=== PATIENT | female | born 1980 | race Caucasian/White ===

== ENCOUNTER → 2017-09-18 08:31 | Outpatient (CLI) | payer OTHER, SELFPAY ==
--- NOTE | 2017-09-18 08:44 | EKG12_ITS ---
Test Reason : PRE OP Blood Pressure : / mmHG Vent. Rate : 074 BPM Atrial Rate : 074 BPM P-R Int : 148 ms QRS Dur : 086 ms QT Int : 394 ms P-R-T Axes : 039 041 041 degrees QTc Int : 437 ms Normal sinus rhythm Normal ECG Confirmed by ANTONELLA PECK ([id number]), editorial specialist XENIA YANG ([id number] on 09/21/2017 2:09:50 PM Referred By: Bolivar Tavarez Confirmed By:ANTONELLA PECK
[2017-09-18 10:05] LABS: Anion Gap 8 (5-15); BUN 10 mg/dL (7-18); BUN/Creat Ratio 14.9 RATIO (10-20); Calcium,Total 8.4 mg/dL (8.5-10.1); Chloride 104 mmol/L (98-107); Creatinine, Serum 0.67 mg/dL (0.55-1.02); EST Glomerular Filtration Rate 105 mL/min (>60); Est Glom Filt Rate - Afr Amer 127 mL/min (>60); Glucose 110 mg/dL (74-106); Potassium 3.9 mmol/L (3.5-5.1); Sodium Level 140 mmol/L (136-145)
== END ==
PROVIDERS: Family Provider Internal Medicine; PCP Internal Medicine; Visit Provider Otolaryngology
DX: J32.4 Chronic pansinusitis (principal)
CPT/HCPCS: 36415; 80048; 93005

== ENCOUNTER → 2017-09-24 15:54 | Outpatient (CLI) | payer OTHER, SELFPAY ==
--- NOTE | 2017-09-24 09:30 | ETH_PTH ---
PATIENT: PAUL CALDERON LOC: [facility] U#:[id number] AGE/SX: 45/F ROOM: RE09/24/[address]: Dr. Gabino Tavarez MD : [id number] BED: DIS: SPEC #: [id number] RECD: 09/24/17 15:33 STATUS: ILAN BERLIN #: [id number] YULIYA: 09/24/17 09:[address]: Gabino Tavarez DEPT: SURGICAL PATHOLOGY RECD BY: Emilia Stephens ENTERED: 09/25/17 09:02 SP TYPE: ETH TISS OTHR DR: Dr. Taisha Sidhu MD [facility] Tissues: A - Ethmoid sinus, NOS B - Ethmoid sinus, NOS Procedures: Decalcification bone/plaque Surgery Specimen Level III HEADER OPERATION: Functional endoscopic sinus surgery PRE-OP DIAGNOSIS: Chronic pansinusitis TISSUE SUBMITTED: A. Left sinus contents, B. Right sinus contents MICROSCOPIC DIAGNOSIS A. Left sinus contents, excision: Chronic sinusitis. Fragments of bone with no significant pathologic change. B. Right sinus contents, excision: Chronic sinusitis. Fragments of bone with no significant pathologic change. AM:alvarez 09/30/17 MICROSCOPIC DESCRIPTION Slides are reviewed. GROSS DESCRIPTION A - Received in fixative is one container labeled with the patient's name and designated left sinus contents. The specimen consists of multiple pieces of pink-grimes soft tissue including turbinate and bone that in aggregate measure 3 x 2.5 x 0.3 cm. The entire specimen is submitted in one cassette after decalcification. B - Received in fixative is one container labeled with the patient's name and designated right sinus contents. The specimen consists of multiple pieces of pink-grimes soft tissue including turbinate and bone that in aggregate measure 3 x 2.5 x 0.3 cm. The entire specimen is submitted in one cassette after decalcification. / SJ:alvarez 09/25/17 TC:3 CPT: 46562 x2, 50027 x2
== END ==
PROVIDERS: Family Provider Internal Medicine; PCP Internal Medicine; Visit Provider Otolaryngology
DX: J32.4 Chronic pansinusitis (principal)
CPT/HCPCS: 88304; 88305; 88311

== ENCOUNTER → 2018-06-01 08:44 | Outpatient (CLI) | payer OTHER, SELFPAY ==
--- NOTE | 2018-06-01 15:58 | PFTCOMP ---
COMPLETE PULMONARY FUNCTION TEST INTERPRETATION Brief HPI: Patient is a 38 year old female, currently under the care of myself, who presents to [facility] for complete pulmonary function tests secondary to diagnosis of asthma. Respiratory therapist reports good effort and reproducible results. Interpretation: Forced expiration spirometry shows no large airways obstructive ventilatory defect with an FEV1 of 110% predicted. There is no significant bronchodilator response by strict ATS criteria. Spirograms are of good quality and plateau normally. The respiratory flow volume loop shows a normal pattern. Lung volumes by body plethysmography show a normal total lung capacity at 4.39 L, 98% predicted. All other lung volumes are within normal limits. Diffusion capacity by carbon monoxide is normal at 97% predicted. The airway resistance is normal. No previous pulmonary function tests were available for review. Impression: These pulmonary function tests are within normal limits
--- OUTSIDE RECORDS SUMMARY | 2018-07-13 21:33 | XMS RPT_ITS ---
:1980 Author Organization OHIP Support Name Relationship Address Phone IRA CLEMONS Unavailable [address] + [place] [address] CORNER CREATIONS Unavailable [address] + [place] [address] BRII CALDERON Unavailable [address] + [place] [address] KACI IRA Unavailable [address] + [place] [address] [employer]NER [employer] Unavailable [address] + [place] [address] BRII CALDERON Unavailable [address] + [place] [address] NHAN CALDERON Unavailable Unavailable + KACI IRA Unavailable [address] + [place] [address] [employer]NER [employer] Unavailable [address] + [place] [address] BRII CALDERON Unavailable [address] + [place] [address] NHAN CALDERON Unavailable Unavailable + KACI IRA Unavailable [address] + [place] [address] [employer]NER [employer] Unavailable [address] + [place] [address] BRII CALDERON Unavailable [address] + [place] [address] DANIELA CLEMONSY Unavailable [address] + [place] [address] [employer] Unavailable [address] + [place] [address] BRII CALDERON Unavailable [address] + [place] [id number] RIA CLEMONS Unavailable [address] + [place] [id number] [employer]NER [employer] Unavailable [address] + [place] [id number] BRII CALDERON Unavailable [address] + [place] [id number] Care Team Providers Name Role Phone Bud Tavarez Attending Unavailable J CarlosannBud Referring Unavailable ROYAL, LOU Primary Care Unavailable Bud Tavarez Attending Unavailable ROYAL, LOU Primary Care Unavailable Bud Tavarez Referring Unavailable Vick Peck Attending Unavailable Bud Tavarez Referring Unavailable Dameon, William Attending Unavailable Dameon, William Referring Unavailable Dameon, William Attending Unavailable ROYAL, LOU Referring Unavailable Dameon, William Attending Unavailable Dameon, William Referring Unavailable ROYAL, LOU Primary Care Unavailable [place], Lou S Primary Care Unavailable Ivanauskas Saulius Admitting Unavailable Ivanauskas Saulius Attending Unavailable [place], Lou S Attending Unavailable [place], Lou S Primary Care Unavailable [place], Lou S Admitting Unavailable [place], Lou S Attending Unavailable [place], Lou S Primary Care Unavailable [place], Lou S Admitting Unavailable [place], Lou S Admitting Unavailable [place], Lou S Attending Unavailable [place], Lou S Primary Care Unavailable [place], Lou S Attending Unavailable [place], Lou S Primary Care Unavailable PROBLEMS PROBLEMS DATE TYPE CONDITION / CODE ATTENDING STATUS SOURCE 06/18/2018 Unknown J45.909 - William Xiao Active [place] Unspecified asthma, Community uncomplicated / Hospital J45.909(ICD-10) Repository 10/17/2017 Unknown Z01.810 - Encounter Vick Peck Active [place] for preprocedural [facility] cardiovascular [facility] examination / Repository Z01.810(ICD-10) PROCEDURES PROCEDURES No Procedure Records FoundRESULTS RESULTS PULMONARY FUNCTION Observed: 06/02/2018 Status: F Source: [place] REPORT COMP 5:47 AM [facility] REPOS[facility]ORY [facility] Pulmonary Services/Neurology [address] [place] [address] MR#: [id number] Acct: [id number] Name: NHAN CALDERON Rep #: [id number] : 1980 38 From: William Xiao MD Referring Dr: William Xiao MD Status: REG CLI Ordering Dr: Date: Location: [facility] Sex: F C COMPLETE PULMONARY FUNCTION TEST INTERPRETATION Brief HPI: Patient is a 38 year old female, currently under the care of myself, who presents to [facility] for complete pulmonary function tests secondary to diagnosis of asthma. Respiratory therapist reports good effort and reproducible results. Interpretation: Forced expiration spirometry shows no large airways obstructive ventilatory defect with an FEV1 of 110% predicted. There is no significant bronchodilator response by strict ATS criteria. Spirograms are of good quality and plateau normally. The respiratory flow volume loop shows a normal pattern. Lung volumes by body plethysmography show a normal total lung capacity at 4.39 L, 98% predicted. All other lung volumes are within normal limits. Diffusion capacity by carbon monoxide is normal at 97% predicted. The airway resistance is normal. No previous pulmonary function tests were available for review. Impression: These pulmonary function tests are within normal limits 06/02/18 0547 <Electronically signed by William Xiao MD> Date William Xiao MD CC: William Xiao MD; [facility] Date Dictated: 06/01/18 1558 Date Transcribed: 06/01/181557 Fluxer: MARBELLA Signed BMP Collected: 05/31/2018 Status: F Source: [facility] 10:33 AM [facility] REPOSITORY TYPE CODE TESTS RESULT OUT OF RANGE REFERENCE UNITS LAB 25973407(L 10-20 mEq/L OINC) Low AGAP 7 LAB 08370601(L 70-99 mg/dL OINC) Glucose Normal Lvl 88 LAB 40138736(L 6-23 mg/dL OINC) BUN Normal 11 LAB 3357476(LO 0.5-1.1 mg/dL INC) Normal Creatinine 0.6 LAB 70596593(L 5.4-30.0 ratio OINC) Normal BUN/Creat Ratio 18.3 LAB 30885020(L 8.6-10.3 mg/dL OINC) Calcium Normal Lvl 8.9 LAB 35043541(L 136-145 mEq/L OINC) Sodium Normal Lvl 138 LAB 32651393(L 3.5-5.3 mEq/L OINC) Normal Potassium Lvl 3.9 LAB 16853466(L 98-107 mEq/L OINC) Chloride Normal 105 LAB 69054982(L 21.0-32.0 mEq/L OINC) CO2 Normal 30.0 Performed By: #### [id number] #### ELLIE [employer] [address] [place] [address] EGFR Collected: 05/31/2018 Status: F Source: [facility] 10:33 AM [facility] REPOSITORY Order Comment: Order added by Discern Expert. TYPE CODE TESTS RESULT OUT OF RANGE REFERENCE UNITS LAB 80399588(LO mL/min/1.73 INC) m2 Normal eGFR >60 LAB 05750531(LO mL/min/1.73 INC) m2 Normal eGFR AA >60 Performed By: #### [id number] #### ELLIE [employer] [address] [place] [address] LIPID PROFILE Collected: 05/31/2018 Status: F Source: [facility] 10:33 AM [facility] REPOSITORY TYPE CODE TESTS RESULT OUT OF RANGE REFERENCE UNITS LAB 72560966(LO 0-199 mg/dL INC) Normal Chol 185 Result Comment: TOTAL CHOLEESTEROL: <200 NORMAL 200 - 239 BORDERLINE HIGH >240 HIGH LAB 55760215(LOINC) 40-60 mg/dL High HDL 72 LAB 93505958(LOINC) 0-130 mg/dL Normal LDL 102 Result Comment: <100 OPTIMAL 100-129 NEAR / ABOVE OPTIMAL 130-159 BORDERLINE HIGH 160-189 HIGH >190 VERY HIGH CALC LDL NOT VALID WHEN TRIGLYCERIDE IS >400 MG/DL LAB 05288182(LOINC) 0-149 mg/dL Normal Trig 53 Result Comment: AGE DESIRABLE BORDERLINE HIGH 91 D - 9 Y 0 - 74 75 - 99 > 100 10 - 19 Y 0 - 89 90 - 129 > 130 20 -24 Y 0 - 114 115 - 149 > 150 > 25 0 - 149 150 - 199 200 - 499 LAB 10644796(LOINC) 0-40 mg/dL Normal VLDL 11 Performed By: #### [id number] #### ELLIE [employer] [address] [place] [address] [place] [address] PULMONARY VISIT REPORT Observed: 05/10/2018 Status: F Source: [place] 1:57 PM [facility] REPOSITORY [facility] [place] [address] [place] [address] OFFICE VISIT Date of Service: 05/10/18 MR#: [id number] Acct: [id number] Name: NHAN CALDERON Rep #: [id number] : 1980 Provider: William Xiao MD Age/Sex: 38/F Location: [facility] Status: Signed Assessment AND Plan 1. Severe persistent asthma without complication J45.50 Plan Patient currently on moderate dose inhaled corticosteroid. Will increase to max dose inhaled corticosteroid. Patient still having frequent exacerbations requiring prednisone burst. Will obtain a complete PFT for confirmation of asthma diagnosis. If this persists between now and the next visit on maximum dose steroids, workup with CBC, IgE and Aspergillus antibodies may be necessary. Signs and symptoms of exacerbation and sick policy were reviewed with the patient. Patient was personally trained on the use of the Ellipta inhaler and samples given. Discontinue Advair. Add Brio 200. Obtain complete PFT. Possible secondary workup at next visit 2. Hypertension I10 Plan Patient now has 2 separate blood pressures, both in the ER in our office show significant hypertension. Patient has not been following up with her primary care physician very closely. Patient does have a blood pressure cuff at home. Patient was advised to continue to check her blood pressure and keep a log. Patient was also advised to follow-up with her primary care physician as medications are likely indicated. Defer to PCP Plan Detail Other Orders Orders: Other Medications New: norgestimate 0.18 mg/0.215 mg/0.25 mg-ethinyl estradiol 25 mcg tablet (Tri1 tab PO DAILY -Lo-Sprintec 0.18 mg/0.215 mg/0.25 mg-25 mcg tablet) Discontinued: fluticasone-salmeterol 250-50 mcg/dose (Advair Diskus) Discontinu1 inh Inhalation BID ed Reason: Order Changed HPI Asthma: Chief Complaint: Asthma Details: Patient is a 38-year-old female, currently the care of [facility], who presents for evaluation secondary to asthma. Patient states that she did follow with Dr. Urias in the past, but he is going to be retiring at the end of the year and she wants to establish care. Patient has been seen by Dr. Peterson (ENT) for several years secondary to chronic pansinusitis. Patient has had multiple surgeries and feels that that slightly improved. However, patient states that she has been on a steroid burst every 3-4 months for the past 3-4 years. Patient does admit that she can forget to take her Advair, but overall feels her compliance is acceptable. Patient does have a known allergy to dogs and does state that she has a dog at home. Patient has never been hospitalized or placed on a ventilator, but does have frequent ER visits associated with shortness of breath. Patient reports that prednisone really work for me. Patient denies any complications with inhaled corticosteroid such as thrush, hoarseness or sore throat that limits compliance. Patient recently was transition from Dulera to Advair 250/50. Patient does not note any change in her exercise tolerance. Patient did have a balloon sinuplasty recently with improvement in drainage. Patient believes that she had a pulmonary function test approximately [address] Urias, but is unaware of the results. Patient does take Singulair and is unclear if it truly makes a difference. Patient estimates that she can use her albuterol 3-4 times per week. Documentation reviewed 12 pages of documentation were reviewed from ENT. Patient has had a CT scan of the patient bone showing severe pansinusitis in July 2016. Patient is currently on allergy desensitization, Dulera, Singulair and Pro Air. Patient has received Kenalog injections in the past. Patient has had an open rhinoplasty on 09/25/2016, but persistent symptoms. The note that was reviewed stated patient was to have a balloon sinuplasty. HPI Comments Details: Intake Vital Signs05/10/18 Height 5 ft 1 in 05/10/18 Weight: 67.132 kg Intake Visit Reasons: Asthma Tank Erector Required: No Accompanied by: Self Is patient in pain?: No Allergies No Known Allergies Allergy (Verified 05/10/18 10:55) Medications albuterol sulfate HFA 90 mcg/actuation aerosol inhaler 2 puff INHALATION Q4H PRN g 05/07/18 [History Confirmed 05/07/18] montelukast 10 mg tablet 10 mg PO QPM 05/07/18 [History Confirmed 05/07/18] fluticasone 200 mcg-vilanterol 25 mcg/dose powder for inhalation 1 inh INHALATION Q24H #60 ea 05/10/18 [Rx Confirmed 05/10/18] norgestimate 0.18 mg/0.215 mg/0.25 mg-ethinyl estradiol 25 mcg tablet 1 tab PO DAILY 05/10/18 [History Confirmed 05/10/18] PFSH Medical History Asthma (Chronic) Chronic sinusitis (Chronic) Family History Father Hypertension Mother Hypertension Social History Smoking Status: Former smoker Review of Systems Const CONSTITUTIONAL: Negative anorexia, body ache, chills, daytime sleepiness, fever(s), night sweats, oral thrush, stops breathing during sleep, weight loss, sleeping in chair, fatigue, weight loss, weight gain, frequent colds, seasonal allergies, other, headache(s) or orthopnea EETM Ear Nose Throat Mouth: Positive hearing normal; negative hard of hearing, hoarseness, dry mouth in morning, change in vision, itchy eyes, eye pain, swallowing Difficulty, ear pain, nose bleed, headache(s), mouth pain, nasal congestion, nasal discharge, post nasal drip, sinus pain, sinus pressure, sore throat or other Cardio Cardiovascular: Negative chest pain, chest pain at rest, chest pain with activity, irregular heart rhythm, edema, shortness of breath when lying down, palpitations, murmur or other Resp Respiratory: Positive as per HPI, wheezing, cough cough: Positive productive color: Positive clear and inhalers; negative shortness of breath, pain with cough, chest congestion, chest tightness, pain on inspiration, increase use of rescue inhalers, snoring, apnea or other Gastro Gastrointestional: Negative bloody stools, change in appetite, difficulty swallowing, reflux, hematemesis, melena stool, loose stool, constipation or other Genitourinary: Negative blood in urine, nocturia, pain with urination or other Musc Musculoskeletal: Negative body pain, back pain, neck pain or other Skin/Breast Skin/Breast: Negative dry skin, itching, rash, unusual bruising, breast lump or other Neuro Neurological: Negative restless legs, confusion, weakness or other Psych Psychocological: Negative abnormal sleep pattern, anxiety, thoughts of hurting self/others, hopelessness or other Lymph Lymphatic: Negative easy bleeding, easy bruising, swollen lymph nodes or other Exam Const Constitutional: Positive conversant, cooperative, in no acute respiratory distress, healthy appearing, well developed, well nourished and good hygiene; negative smells of smoke, frail appearing, appears older than stated age or wearing supplemental oxygen Head Head: Positive normocephalic and atraumatic; negative cyanosis of lips/distal nose, frontal sinus tenderness or maxillary sinus tenderness Eyes Eye: Positive clear conjunctiva; negative nystagmus, scleral abnormality or cataract present Ears Ear: Positive hearing normal and external ears normal; negative hard of hearing Nose Nose: Positive clear nasal discharge; negative epistaxis, external nose normal, nasal polyp or septum normal Mouth Mouth: Positive oral mucosae normal, no lesions and posterior oropharynx is adequate; negative post nasal drip, malodorous breath or oral thrush present Mallampati Score: II: Mallampati Score Neck Neck: Positive normal visual inspection, full ROM and trachea midline; negative lymphadenopathy or JVD Chest Wall Chest: Positive normal inspection of the chest and symmetric chest movement; negative crepitus or tenderness Resp lung sounds: Positive clear to auscultation, good air exchange, normal expiratory time and normal respiratory effort; negative wheezes, rhonchi, rales, use of accessory muscles, wheeze present on forced exhalation or dullness to percussion Cardio Cardiac: Positive regular rate, regular rhythm, S1 normal and S2 normal; negative murmur, rub or gallop GI GI: Positive normal to inspection and normal bowel sounds; negative distended, ascites or epigastric tenderness Genitourinary: Positive deferred Musc Musculoskeletal: Positive steady gait; negative using an assistive device for ambulation, kyphosis or scoliosis Skin Pulmonary Skin Exam: Positive intact; negative rash, lesion, ulcers, erythema or dermal atrophy Pulses Pulse: Yes radial pulses present Extremities Extremities: Yes capillary refill normal, No clubbing, No cyanosis, No edema, No stasis dermatitis Neuro Neurologic: Yes conversant, Yes no focal neuro deficits, Yes understands questions, Yes cooperative, Yes normal concentration, Yes normal cognition, Yes normal coordination Lymph Lymphatic: No lymphadenopathy Psych Appearance: Positive grossly normal Mental Status: Positive mental status grossly normal Mood: Positive congruent mood Affect: Positive normal affect Office Procedures Inhaler Training Inhaler Training Procedure performed by: William Xiao Inhaler Training: Yes personally trained on inhaler use, sample provided, expresses understanding and continue to monitor Coding Level of Care Code Off vis,new,level 4 Diagnoses Severe persistent asthma without complication J45.50 Asthma severity: severe Asthma persistence: persistent Asthma complication type: uncomplicated Hypertension I10 05/10/18 1357 <Electronically signed by William Xiao MD> Date William Xiao MD Cosigner Signature: Date (if applicable) CC: LOU ROYAL ETHMOID TISSUE Observed: 09/24/2017 Status: F Source: [facility] 9:30 AM [facility] REPOSITORY Patient: NHAN CALDERON : 1980 (37/F) Acct Num: [id number] Phys: Daysi LARAPlessis Unit Num: [id number] Loc: LABSPEC Specimen: [id number] Received: 09/24/171532 Spec Type: ETH TISS TISSUES TISSUES: A. Ethmoid sinus, NOS - LEFT B. Ethmoid sinus, NOS - RIGHT GROSS DESCRIPTION A - Received in fixative is one container labeled with the patient's name and designated left sinus contents. The specimen consists of multiple pieces of pink-grimes soft tissue including turbinate and bone that in aggregate measure 3 x 2.5 x 0.3 cm. The entire specimen is submitted in one cassette after decalcification. B - Received in fixative is one container labeled with the patient's name and designated right sinus contents. The specimen consists of multiple pieces of pink-grimes soft tissue including turbinate and bone that in aggregate measure 3 x 2.5 x 0.3 cm. The entire specimen is submitted in one cassette after decalcification. / GEORGE:alvarez 09/25/17 TC:3 CPT: 01868 x2, 62697 x2 HEADER OPERATION: Functional endoscopic sinus surgery PRE-OP DIAGNOSIS: Chronic pansinusitis TISSUE SUBMITTED: A. Left sinus contents, B. Right sinus contents MICROSCOPIC DESCRIPTION Slides are reviewed. MICROSCOPIC DIAGNOSIS A. Left sinus contents, excision: Chronic sinusitis. Fragments of bone with no significant pathologic change. B. Right sinus contents, excision: Chronic sinusitis. Fragments of bone with no significant pathologic change. AM:alvarez 09/30/17 Signed Augustine Herrera 09/30/17 <signature on file> Performed By: #### PETH #### [facility] [address] [facility] [place], [address] 12 LEAD ELECTROCARDIOGRAM Observed: 09/21/2017 Status: F Source: [facility] 2:10 PM [facility] REPOSITORY [facility] Cardiovascular Services [address] [place] [address] 12 Lead EKG 09/18/17 0850 MR#: [id number] Acct: [id number] Name: NHAN CALDERON Rep #: [id number] : 1980 37 From: Vick Peck MD Attending Dr: Daysi LARA,Gabino Status: REG CLI Ordering Dr: Bud Tavarez MD Date: 09/18/17 Location: LAB Sex: F C Admitted: Test Reason : PRE OP Blood Pressure : / mmHG Vent. Rate : 074 BPM Atrial Rate : 074 BPM P-R Int : 148 ms QRS Dur : 086 ms QT Int : 394 ms P-R-T Axes : 039 041 041 degrees QTc Int : 437 ms Normal sinus rhythm Normal ECG Confirmed by VICK PECK ([id number]), dictionary editor XENIA YANG ([id number]) on 09/21/2017 2:09:50 PM Referred By: Bolivar Tavarez Confirmed By:VICK PECK 09/21/17 1409 Date Vick Peck MD CC: Gabino Tavarez MD; LOU CHAMBERLAIN Signed BASIC METABOLIC Collected: 09/18/2017 Status: F Source: [place] PROFILE (BMP) 8:42 AM [facility] REPOSITORY TYPE CODE TESTS RESULT OUT OF RANGE REFERENCE UNITS LAB L501.0100 74-106 mg/dL High GLU 110 Result Comment: Fasting Glucose result from 100 to 125 mg/dL suggests IMPAIRED HOMEOSTASIS per A.D.A. criteria. Please note revised GLUCOSE reference range effective 2017. LAB L501.1000 7-18 mg/dL Normal BUN 10 LAB L501.1100 0.55-1.02 mg/dL Normal CREAT,SERUM 0.67 Result Comment: The validity of the calculated GFR AND GFRAA in patients over 70 years has not been determined. Clinical correlation is essential. LAB L501.1110 >60 mL/min Normal EST GFR 105 Result Comment: Non- GFR Calc LAB L501.1115 >60 mL/min Normal EST GFR - AA 127 Result Comment: GFR Calc LAB L501.1300 10-20 RATIO Normal BUN/CRE 14.9 LAB L501.2200 8.5-10.1 mg/dL Low CA 8.4 LAB L501.5300 136-145 mmol/L NA Normal 140 LAB L501.5600 3.5-5.1 mmol/L K Normal 3.9 LAB L501.5900 98-107 mmol/L CL Normal 104 LAB L501.6100 21.0-32.0 mmol/L Normal CO2 28.0 LAB L501.6200 5-15 Normal GAP 8 Performed By: #### L500.2500 #### [facility] [address] [place], [address] ALLERGIES ALLERGIES DATE TYPE / CODE NAME / CODE REACTION SEVERITY SOURCE 05/10/2018 Drug No Known Unknown [place] Allergy/416 Allergies/C247095 [facility] 585218(SNOM 388(RXNORM) Hospital ED CT) Repository Drug/320757 No Known [facility] 003(SNOMED [facility]) Allergies System Repository ENCOUNTERS ENCOUNTERS ADMIT/DISCHARGE ACCOUNT NUMBER ADMITTING ENCOUNTER LOCATION SOURCE CLASS 06/03/2018 [id number] Ambulatory [facility] ding:[place] Repository nt Medic 06/03/2018/06/03/20 [id number] [place], [address] ding:[place] Repository nt MedicRoom: Room 1 06/01/2018 [id number] Ambulatory [facility]MS[facility]: [facility] Repository 06/01/2018 [id number] Ambulatory [facility] ding:PSN Repository 05/31/2018/05/31/20 [id number] [place], Ambulatory [address] ding:.[facility] Repository 05/31/2018 [id number] Ambulatory [address] [place] [address] Repository 05/18/2018/05/18/20 [id number] [place], Ambulatory [address] ding:[place] Repository nt MedicRoom: Room 2 05/10/2018/05/10/20 [id number] Ambulatory BMSBuilding: [place] 18 BMS.[facility] Repository 04/25/2018/04/25/20 [id number] [place], [address] ding:[facility] EDRoom: WR Repository 04/25/2018 [id number] Ambulatory [address] [place] [address] Repository 09/24/2017 [id number] Ambulatory [facility] ding:[facility]SPEC Repository 09/18/2017 [id number] Ambulatory [facility] ding:LAB Repository 09/18/2017 [id number] Ambulatory BMSBuilding: [facility] Repository PAYERS PAYERS ENCOUNTER GUARANTOR PAYER SUBSCRIBER SOURCE 06/03/2018 NHAN Sanchez Congregationfamilia FONSECA: [facility] [id number] AETNAPolicy Number: [id number] Effective [address] Repository 175Tel: ([phone]) Date:2018-06-03[place], [phone] () [id number] [place] Name:CD:[id number] O [address]Qrs: [address] LILIA HUGHES [address]ZF: [phone] (WP) 06/03/2018 NHAN Sosa Primary NHAN MOYERB: Insurance:1500 ABBEYB: [facility] AETNAJacques Number: [id number] [facility] Effective [address] [facility] Repository 175Tel: [phone]) Date:2018-05-18 - [address] [place] [address], [phone] () [id number] [place] Name:CD:[id number] O [address]Siv: [address], [place] [address]WP: [phone] (WP) 06/01/2018 NHAN Sosa Primary NHAN Acre [id number] CR Insurance:AETNAJacques MOYERB: [address], Number: [id number] [facility] [address]Jje: [id number] Repository Date:[id number] () [id number], [place] [address]IV: 06/01/2018 Secondary NOT GIVENUNK [place] Insurance:SELF PAY [facility] Number: Effective Repository Date:2018-06-01 06/01/2018 NHAN Sosa Primary NHAN Georgeoster [id number] CR Insurance:AETNAPolhairy ROGERSDOB: [address], Number: [id number] [facility] [address]Xtn: [id number] Repository Date:[id number] [address] () [address], [place] [address]UC: 06/01/2018 Secondary NOT GIVENUNK [place] Insurance:SELF PAY [facility] Number: Effective Repository Date:2018-05-10 05/31/2018 NHAN Sosa Primary NHAN MOYERB: Insurance:AETNAPolcourtney MOYERB: [facility] Number: Effective [id number] [facility] Date:2018-05-31 [facility] Repository 175Tel: [phone] [id number] [address] [place] [address] (HP) Name:CD:[id number] [place] [address], [place] [address]Krh: [id number]: [phone] (HP) (WP) 05/31/2018 NHAN Bender [facility] ROGERSDOB: Insurance:AetnaPolicy ROGERSDOB: Hospitals Number: [id number] [address]ository [address] [id number] [address] [place] [address] Date:Plan Name:Health [id number]: (HP) 05/31/2018 [facility] Insurance:AetnaPolicy ROGERSDOB: Hospitals Number: [id number] Repository [id number] Date:Plan Name:Health 05/18/2018 NHAN Sosa Primary [facility] ROGERSDOB: Insurance:1500 ROGERSDOB: [facility] AETNAPolicy Number: [id number] [facility] Effective [facility] Repository 175Tel: [phone] Date:2018-05-[address] [place], [place] [id number] () [id number] [place] Name:CD:[id number]: [address], [place] [address]KD: [phone] (HP) [phone] (WP) 05/10/2018 NHAN Sosa Primary [facility] [place] [id number] Insurance:AETNAPolicy RogersDOB: [facility] Number: [id number] [address], [id number] [place]ository [place] [address]Qcs: Date:[id number] [address] [place] [address] (HP) [phone]: 05/10/2018 Secondary NOT GIVENUNK Claude Insurance:SELF PAY [facility] Number: Effective Repository Date:2018-05-07 04/25/2018 NHAN Sosa Primary NHAN Freedman ABBEYB: Insurance:AETNAPolicy ROGERSDOB: [facility] Number: Effective [id number] [place] [address] ROAD Date:2018-04-[address] [facility] [address] Repository 175Tel: [phone] [address] [place] [address], [phone] (HP) Name:CD:[id number] [facility] [address], [place] [address]Eyh: [id number]: [phone] (HP) () 04/25/2018 NHAN Hayes ROGKEVINDOB: Insurance:AetnaPolicy ROGERSDOB: Hospitals Number: [id number] Repository [address] [id number] [address] [place] [address] Date:Plan Name:Health [id number]: () 09/24/2017 Nhan Arce [id number] CR Insurance:AETNAPolicy RogersDOB: [address] Number: [id number] [facility] [address]Gsj: [phone] [id number] Repository (HP) Date:[id number] [address], [place] [address]MH: 09/24/2017 Secondary NOT GIVENUNK [place] Insurance:SELF PAY [facility] Number: Effective Repository Date:2017-09-24 09/18/2017 Nhan Sosa Primary Nhan Laura George[place] [id number] CR Insurance:AETNAPolicy RogersDOB: [address] Number: [id number] Hospital [address]Asj: [phone] [id number] Repository (HP) Date:[id number] [address] [place] [address]AW: 09/18/2017 Secondary NOT GIVENUNK Claude Insurance:SELF PAY [facility] Number: Effective Repository Date:2017-09-18 09/18/2017 Nhan Bender Nhan Sanchez [id number] Insurance:AECharlie MoyerB: [address] Number: [id number] [address]Mhr: [phone] [id number] Repository [phone] () Date:[id number] [address] LILIA HUGH[place] [address]WQ: 09/18/2017 Secondary NOT GIVENUNK Claude Insurance:SELF PAY [facility] Number: Effective Repository Date:2017-09-18
== END ==
PROVIDERS: Family Provider Internal Medicine; PCP Internal Medicine; Referring Provider Internal Medicine Critical Care Medicine; Visit Provider Internal Medicine Critical Care Medicine
DX: J45.909 Unspecified asthma, uncomplicated (principal)
CPT/HCPCS: 94060; 94726; 94729

== ENCOUNTER 2018-10-08 02:54 | Emergency (ER) | payer OTHER, SELFPAY ==
[2018-09-30 12:41] VITALS: BMI 27.8
[2018-10-08 02:54] VITALS: BP 158/100; PULSE 83; RESP 20; TEMP 36.4; O2SAT 99; BMI 28.4
--- NOTE | 2018-10-08 03:16 | CT_ITS ---
HISTORY: RT FLANK PAIN SINCE MIDNIGHT,DIFFICULT URINATION,ELEVATED BPHX:ASTHMA EXAMINATION: CT Abdomen And Pelvis W/O Contrast TECHNIQUE: Helically acquired images were obtained of the abdomen and pelvis without oral or IV contrast as per renal stone protocol. A radiation dose optimization technique was used for this scan. IV Contrast dosage and agent: None. Oral contrast: None. COMPARISON: None FINDINGS: LOWER CHEST: Lung bases are clear. No cardiomegaly or pericardial effusion observed. LIVER: Homogeneous. No focal mass. GALLBLADDER AND BILIARY TREE: No calcified gallstones. There is no gallbladder distension or wall edema. No intra- or extrahepatic biliary ductal dilation. KIDNEYS AND URETERS, URINARY BLADDER: 6 mm in length 3 mm in diameter right UVJ stone, with marked right hydronephrosis and hydroureter. Several, greater than 6 in each kidney, small in size residual bilateral renal stones and renal medullary calcinosis. No left hydronephrosis or left ureteral stones. Urinary bladder otherwise unremarkable. ADRENAL GLANDS: Non-enlarged. SPLEEN: Normal size without focal cystic or solid mass. PANCREAS: No focal cystic or solid mass. BOWEL: Normal appendix. No stomach or bowel distension. No focal inflammatory change observed. LYMPH NODES: No enlarged mesenteric or retroperitoneal lymph nodes. PERITONEUM: No ascites or free air. No other fluid collection. VESSELS: Aorta is non-dilated. REPRODUCTIVE ORGANS: Uterus and ovaries with unremarkable noncontrast CT appearance. ABDOMINAL WALL: No discrete abdominal or pelvic wall hernia observed. BONES: No lytic or blastic abnormality observed. CT/Abdomen/Pelvis without Cont IMPRESSION: 6 x 3 mm right UVJ stone with marked right hydronephrosis and hydroureter. Several small residual bilateral renal stones. Individualized dose optimization techniques were used for this CT. at 0441 Reported and signed by: Rubin Alston MD Electronically Signed: Rubin Alston, at 4:40 EDT Tel , Service support ,
--- NOTE | 2018-10-08 03:17 | ED.VIS.GEN ---
History of Present Illness Chief Complaint: Flank Pain Informant: Patient Onset: Hours - 2-3 Context: Sudden Onset Timing: Continuous, Waxes and wanes Quality: pain Location: R flank, radiating down toward R groin Current Severity: Severe Maximum Severity: Severe Worsened by: nothing Relieved by: nothing Associated Symptoms: feels like needs to urinate, but can't. n/v. Narrative: Took ibuprofen before the pain became severe, no help. Never had this before. No syncope. No hematuria. Currently on menstrual cycle. States she is not . - Past Medical History (1) Asthma Status: Chronic (2) Hypertension Status: Chronic Past Medical History - Allergies and Home Meds Allergies/Adverse Reactions: Allergies No Known Allergies Allergy (Verified 10/08/18 02:57) Primary Care Physician: Taisha Sidhu [Primary Care Provider] - Lives: Spouse/ Significant Other Smoking Status: Former smoker Review of Systems General: Denies: Chills, Fever, Sweats Eyes: Denies: Visual changes - bilaterally, Diplopia ENT: Denies: Rhinorrhea, Sore throat Cardiovascular: Denies: Chest pain, Palpitations Respiratory: Denies: Dyspnea, Cough, Dyspnea on exertion Gastrointestinal: Reports: Abdominal pain, Nausea, Vomiting. Denies: Diarrhea, Melena, Hematochezia Genitourinary: Denies: Dysuria, Hematuria, Frequency Musculoskeletal: Reports: Back pain. Denies: Swelling, Extremity Pain Skin: Denies: Rash, Wounds Neurological: Denies: Headache, Weakness, Numbness Physical Exam Vital Signs/Narrative: Vital Signs Temp Pulse Resp BP Pulse Ox 10/08/18 02:54 97.6 F L 83 20 H 158/100 H 99 Inital Vital Signs reviewed: Yes General: Well nourished, Well developed, Acute Distress - painful. pacing in room. Head: Normocephalic, Atraumatic Eyes: Perrl, EOMI ENT: Moist mucous membranes, No rhinorrhea Neck: Supple, Nontender Cardiovascular: Regular rate, Regular rhythm, No murmurs Respiratory: No distress, CTA bilaterally, Chest nontender Abdomen: Soft, Nontender, Nondistended, Normal bowel sounds Back: Nontender, Normal Inspection. Negative for: CVA tenderness Extremities: Nontender, No edema Skin: Normal color, No rash Neurological: Alert, Oriented x3, Cranial nerves II-XII grossly intact, Normal Strength, Normal Sensation Psychological: Normal affect, Normal Mood Diagnostic/Tx/Re-eval Impressions Abdomen/Pelvis CT 10/08/18 03:16 IMPRESSION: 6 x 3 mm right UVJ stone with marked right hydronephrosis and hydroureter. Several small residual bilateral renal stones. Individualized dose optimization techniques were used for this CT. at 0441 Reported and signed by: Rubin Alston MD Electronically Signed: Rubin Alston, at 4:40 EDT Tel , Service support , 10/08/18 03:16 Abdomen/Pelvis without Cont [CT] Stat Laboratory Results 10/08/18 10/08/18 03:10 03:10 Urine Color Straw Urine Clarity Clear Urine pH 7.0 Ur Specific [place] 1.015 Urine Protein Negative Urine Glucose (UA) Normal Urine Ketones Negative Urine Occult Blood 250 H Urine Nitrite Negative Urine Bilirubin Negative Urine Urobilinogen Normal Ur Leukocyte Esterase 25 H Urine RBC 0-5 SEEN Urine WBC 0-5 SEEN Ur Squamous Epith Cells 0-5 SEEN Urine Bacteria 0 SEEN Urine Mucus 0 SEEN Urine Test Negative - Medical Decision Making Urinalysis shows blood but no infection, and CT shows right UVJ stone that is 6 x 3 mm, the latter being the width, with significant hydroureter and hydronephrosis, likely causing her pain. No other acute abnormality. Initially we had some difficulty controlling her symptoms although initial dosing of morphine and Zofran did take the edge off. Her morphine dose was repeated but she still was in pain. We then dosed her with Dilaudid and a dose of Phenergan because she was still getting nauseated. We talked at length about possible admission for pain control, and that it certainly was up to her and I was willing to observe her in the emergency department as long as she wished or needed. However, the Dilaudid helped quite a bit, and she declines and prefers to go home and rest. She was advised that expectant management is indicated at this time, and she is very likely to pass the stone on her own, but if she cannot control the symptoms she is always welcome to return to the ER. Her CT showed medullary calcinosis in addition to multiple bilateral small stones in the kidneys, I discussed all these findings with her, and advised that she follow-up with a urologist for further counseling. Patient states she has a significant family history of kidney stones in her father. I prescribed her Flomax given its location and some evidence of possible help with passing stones in these locations. Also given Percocet, a home pack, and a prescription for Zofran. Given urine strainers and advised to take the stone she passes to urology, if she does so prior to the appointment. All questions answered at the bedside with patient and . ED Disposition - Plan for ED Patient: Disposition: Home or Assisted Living Diagnosis: Ureterolithiasis, Bilateral nephrolithiasis, Renal colic on right side Instructions: ED Stone Renal W Colic Prescriptions: Oxycodone HCl/Acetaminophen [Percocet 5/325] 1 tablet PO Q6H PRN PRN 3 Days #12 tablet PRN Reason: Pain Ondansetron [Zofran] 8 mg PO Q8H PRN PRN #12 tablet PRN Reason: Nausea Tamsulosin HCl [Flomax] 0.4 mg PO DAILY #7 capsule Referrals: Taisha Sidhu [Primary Care Provider] - Ivy Messer MD [STAFF PHYSICIAN] - 5-7 Days
[2018-10-08] MEDS: Ondansetron 4 MG/2 ML Vial IV (03:22)
[2018-10-08] MEDS: Morphine 4 MG/ML Syringe IV ×2 (03:22→04:30)
[2018-10-08 03:24] LABS: Bacteria 0 SEEN /hpf (None Seen); Mucous, Urine 0 SEEN /hpf (<or=2+)
[2018-10-08 03:26] LABS: Color, Urine Straw (Yellow); Glucose, Dipstick Normal (Normal); Ketone-Dipstick Negative (Negative); Leukocyte Esterase-Dipstick 25 /ul (Negative); Nitrite-Dipstick Negative (Negative); Occult Blood-Urine 250 /ul (Negative); Protein-Dipstick Negative (Negative); Specific Gravity, Urine 1.015 (1.002-1.030); Urine Bilirubin Dipstick Negative (Negative); Urine Clarity Clear (Clear); Urine Urobilinogen Normal (Normal)
[2018-10-08 03:52] LABS: Internal QC Validated? YES +Cl - CLEAR BKGD; Pregnancy, Urine Negative Negative
[2018-10-08 04:00] LABS: Squamous Epithelial Cells - UA 0-5 SEEN /hpf (5-10)
[2018-10-08 04:01] LABS: Red Blood Cells-Urine 0-5 SEEN /hpf (0-5); White Blood Cells 0-5 SEEN /hpf (0-5)
[2018-10-08] MEDS: Ketorolac 15 MG/ML Vial IV (04:30)
[2018-10-08] MEDS: proMETHazine 25 MG/ML Syringe 6.25 MG IV (05:04)
[2018-10-08] MEDS: HYDROmorphone 1 MG/ML Syringe IV (05:05)
[2018-10-08 05:09] VITALS: RESP 18
[2018-10-08] MEDS: oxyCODONE 5 MG Tablet PO (05:51)
[2018-10-08 05:53] VITALS: BP 140/87; PULSE 81; RESP 16; O2SAT 98
== END 2018-10-08 05:53 | disposition home or self-care (01) ==
PROVIDERS: Emergency Provider Emergency Medicine; Family Provider Internal Medicine; PCP Internal Medicine
DX: N13.2 Hydronephrosis with renal and ureteral calculous obstruction (principal); I10 Essential (primary) hypertension; J45.909 Unspecified asthma, uncomplicated; Z79.899 Other long term (current) drug therapy; Z87.891 Personal history of nicotine dependence
CPT/HCPCS: 74176; 81001; 81025; 96374; 96375; 96376; 99285; J2405

== ENCOUNTER → 2019-07-21 13:41 | Outpatient (CLI) | payer OTHER, SELFPAY ==
[2019-07-14 11:49] VITALS: BMI 28.4
== END ==
PROVIDERS: PCP Internal Medicine; Referring Provider Internal Medicine Critical Care Medicine; Visit Provider Internal Medicine Critical Care Medicine
DX: J45.909 Unspecified asthma, uncomplicated (principal)
CPT/HCPCS: 87633

== ENCOUNTER → 2020-10-02 14:08 | Outpatient (CLI) | payer OTHER, SELFPAY ==
[2019-08-25 11:22] VITALS: BMI 28.4
== END ==
PROVIDERS: PCP Internal Medicine; Referring Provider Otolaryngology; Visit Provider Otolaryngology
DX: Z11.59 Encounter for screening for other viral diseases (principal)
CPT/HCPCS: 87635; C9803; U0002

== ENCOUNTER → 2021-04-05 09:37 | Outpatient (CLI) | payer OTHER, SELFPAY ==
--- NOTE | 2021-04-06 11:39 | PFTCOMP ---
COMPLETE PULMONARY FUNCTION TEST INTERPRETATION Brief HPI: Patient is a 41 year old female, currently under the care of myself, who presents to [facility] for complete pulmonary function tests secondary to diagnosis of asthma. Respiratory therapist reports good effort and reproducible results. Interpretation: Forced expiration spirometry shows no large airways obstructive ventilatory defect with an FEV1 of 95% predicted. There is no significant bronchodilator response by strict ATS criteria. Spirograms are of good quality and plateau normally. The respiratory flow volume loop shows a normal pattern. Lung volumes by body plethysmography show a normal total lung capacity at 4.32 L, 97% predicted. All other lung volumes are within normal limits. Diffusion capacity by carbon monoxide is normal at 88% predicted. The airway resistance is normal. Compared to previous pulmonary function tests from 06/02/2018, there is been a significant reduction in FEV1 by 16%. Impression: Grossly normal pulmonary function test, but some decline compared to previous testing.
== END ==
PROVIDERS: PCP Internal Medicine; Referring Provider Internal Medicine Critical Care Medicine; Visit Provider Internal Medicine Critical Care Medicine
DX: J45.50 Severe persistent asthma, uncomplicated (principal)
CPT/HCPCS: 94060; 94726; 94729

== ENCOUNTER 2022-05-25 16:37 | Emergency (ER) | payer OTHER, SELFPAY ==
[2022-05-25 16:38] VITALS: BP 173/125; PULSE 100; RESP 24; TEMP 36.2; O2SAT 99; BMI 30.2
--- NOTE | 2022-05-25 16:51 | CT_ITS ---
EXAM: CT ABDOMEN AND PELVIS WITHOUT INTRAVENOUS CONTRAST CLINICAL INDICATION: Kidney Stone-RIGHT FLANK PAIN TECHNIQUE: Helically acquired images were obtained of the abdomen and pelvis without intravenous contrast. This CT exam was performed using one or more of the following dose reduction techniques: automated exposure control, adjustment of the mA and/or kV according to patient size, and/or use of iterative reconstruction technique. This report was created using [employer]! report generation technology. COMPARISON: 10/08/2018. FINDINGS: LOWER THORAX: Unremarkable. Lung bases are clear. No cardiomegaly. No significant pericardial effusion. ABDOMEN: LIVER: Unremarkable. Homogeneous. GALLBLADDER AND BILE DUCTS: Unremarkable. No calcified gallstones. No gallbladder distention or wall edema. No intra- or extrahepatic biliary ductal dilation. PANCREAS: Unremarkable. No focal cystic mass. SPLEEN: Unremarkable. Normal size without focal cystic or solid mass. ADRENALS: Unremarkable. No nodules. KIDNEYS AND URETERS: Right kidney is mildly enlarged with moderate hydronephrosis. Multiple bilateral nonobstructing renal calculi measuring up to 4 mm. Marked right hydroureter. 5 x 5 x 3 mm stone in the right distal ureter. Additional small stone noted immediately proximal. Normal renal size and position. STOMACH AND BOWEL: Unremarkable. No stomach or bowel distention. No focal inflammatory change. PELVIS: APPENDIX: No evidence of acute appendicitis. BLADDER: Unremarkable. REPRODUCTIVE: Unremarkable as visualized. No mass. ABDOMEN and PELVIS: INTRAPERITONEAL SPACE: Unremarkable. No ascites or other fluid collection. No free air. BONES/JOINTS: Unremarkable. No suspicious lytic or blastic abnormality. SOFT TISSUES: Unremarkable. No discrete abdominal or pelvic wall hernia. VASCULATURE: Unremarkable. Abdominal aorta is normal in caliber. LYMPH NODES: Unremarkable. No enlarged lymph nodes. CT/Abdomen/Pelvis without Cont IMPRESSION: 1. Right distal ureteral stone with moderate proximal hydroureteronephrosis. 2. Multiple additional nonobstructing renal calculi. Electronically Signed: Kimberly Boyle MD at 17:58 EST Reading Location ID and State: [id number] / Tel , Service support ,
--- NOTE | 2022-05-25 16:52 | EX.ED.DYSGE1 ---
HPI History of Present Illness Chief Complaint: Flank Pain Narrative Narrative: 42-year-old female past medical history of asthma, previous kidney stones a few years ago presents with right flank pain. She states her pain began intermittently a few weeks ago. She denies any fevers or chills. No nausea or vomiting. No hematuria or dysuria. Last menstrual period was a few weeks ago but she is not because her had a vasectomy. She presents because of increased pain in her right flank. It used to be in her low back but now has moved to the front. She thinks she is unable to pass a kidney stone for the last few weeks. She denies any exacerbating or alleviating factors. No problems with bowel movements. This feels similar to when she had a kidney stone. This morning, her pain was much worse than it had been over the last few weeks. [facility] Medical History Asthma Chronic sinusitis Hypertension Home Medications amlodipine 5 mg tablet 5 mg PO DAILY 10/08/18 [History Last Taken Unknown] cetirizine 10 mg tablet 10 mg PO DAILY 10/08/18 [History Last Taken Unknown] fluticasone propionate 50 mcg/actuation nasal spray,suspension 1 spray NASAL DAILY 10/08/18 [History Last Taken Unknown] ondansetron HCl 8 mg tablet 8 mg PO Q8H PRN PRN Nausea #12 tabs 10/08/18 [Rx Last Taken Unknown] tamsulosin 0.4 mg capsule 0.4 mg PO DAILY #7 caps 10/08/18 [Rx Last Taken Unknown] albuterol sulfate 90 mcg/actuation aerosol inhaler (ProAir HFA) 2 puff inhalation Q4H PRN Sob &/Or Wheezing #8.5 grams 06/14/21 [Rx Last Taken Unknown] fluticasone furoate 200 mcg-vilanterol 25 mcg/dose inhalation powder (Breo Ellipta) 1 inh inhalation Q24H #60 ea 12/20/21 [Rx Last Taken Unknown] ketorolac 10 mg tablet 10 mg PO TID PRN pain #15 tabs 05/25/22 [Rx Last Taken Unknown] oxycodone-acetaminophen 5 mg-325 mg tablet (Percocet) 1 tab PO Q6H PRN pain 3 days #12 tabs 05/25/22 [Rx Last Taken Unknown] tamsulosin 0.4 mg capsule (Flomax) 0.4 mg PO DAILY #10 caps 05/25/22 [Rx Last Taken Unknown] Allergy/AdvReac Type Severity Reaction Status Date / Time No Known Allergies Allergy Verified 05/25/22 16:41 Family History Father Hypertension Mother Hypertension Social History Smoking Status: Never smoker ROS ROS ED ROS Narrative Constitutional: No fever, no chills. HEENT: No sore throat. No neck pain. No loss of vision. No rhinorrhea. Cardiovascular: No chest pain. No palpitations. No pedal edema. Respiratory: No cough, no shortness of breath. Abdominal: No abdominal pain. No nausea. No vomiting. Genitourinary: No dysuria. No hematuria. Right flank pain. No exacerbating or alleviating factors. Musculoskeletal: No myalgias. No arthralgias. Neurologic: No headaches. No dizziness. No lightheadedness. Skin: No rash. No change in color. Psychiatric: No depression. No anxiety. EXAM Physical Exam Narrative Exam Narrative: Afebrile. Vital signs noted. Appears mildly uncomfortable with her right flank pain. HEENT: Normocephalic. Atraumatic. PERRL, EOMI. Neck soft and supple. No point tenderness or step off. Cardiovascular: Regular rate and rhythm. No murmurs, rubs, or gallops appreciated. Respiratory: No tachypnea. Lungs clear to auscultation bilaterally. Gastrointestinal: Abdomen soft, nontender, with normoactive bowel sounds. No rebound or guarding. Neurological: Awake. Alert. Nonfocal, nonlateralizing. Skin: No rash. Normal color. No pallor. Musculoskeletal: No pedal edema. Full range of motion extremities. Const Vital Signs: 05/25/22 16:38 05/25/22 17:57 05/25/22 18:04 Temperature 97.2 F L Temperature Source Temporal Pulse Rate 100 85 74 Respiratory Rate 24 H 18 Blood Pressure 173/125 H Blood Pressure Mean 141 Pulse Ox 99 99 99 Oxygen Delivery Method Room Air Room Air Room Air 05/25/22 18:11 Temperature Temperature Source Pulse Rate 94 Respiratory Rate 18 Blood Pressure Blood Pressure Mean Pulse Ox 95 Oxygen Delivery Method MDM MDM MDM Narrative Medical decision making narrative: Kidney stone work-up was pursued. Initially she was administered morphine and ondansetron. I will wait for negative test to administer Toradol. CT of the abdomen and pelvis will be obtained along with CBC, BMP, and urinalysis. CBC shows normal white count of 10.2, hemoglobin slightly elevated 15.4 with hematocrit 46.0. Normal platelet count of 340. BMP shows BUN of 15 with a creatinine of 1.0, serum is negative. Urinalysis does show red cells but no evidence of infection or WBCs within normal limits. I do not feel antibiotics are indicated. CT of the abdomen and pelvis shows multiple bilateral renal stones measuring up to 4 mm, but of most significance is a 5 x 5 x 3 mm right distal ureteral stone with moderate hydronephrosis. She was administered Toradol after morphine, and her pain has improved. I feel she can be discharged safely home with follow-up. She was referred to Dr. Messer with urology, and written prescriptions for Flomax which she has taken previously, Toradol, and Percocet for 3 days. She will drink plenty of fluids. Return instructions were reviewed. I feel she can be discharged safely home with follow-up. Disposition is discharged home in stable condition. Lab Data Attestation: I reviewed the patient's lab results. Labs: Laboratory Results - last 24 hr 05/25/22 05/25/22 05/25/22 16:48 16:48 16:48 WBC 10.2 RBC 5.27 Hgb 15.4 H Hct 46.0 MCV 87.3 MCH 29.2 MCHC 33.5 RDW Std Deviation 39.8 RDW Coeff of Sera 12.6 Plt Count 340 MPV 9.2 Immature Gran % (Auto) 0.300 Neut % (Auto) 65.2 Lymph % (Auto) 22.6 George % (Auto) 6.1 Eos % (Auto) 5.0 Baso % (Auto) 0.8 Absolute Neuts (auto) 6.6 Absolute Lymphs (auto) 2.30 Nucleated RBC % 0 Sodium 141 Potassium 3.4 L Chloride 108 H Carbon Dioxide 25.0 Anion Gap 8 BUN 15 Creatinine 1.02 Estim Creat Clear Calc 54.22 Est GFR (MDRD) Af Amer 76 Est GFR (MDRD) Non-Af 63 BUN/Creatinine Ratio 14.7 Glucose 109 H Calcium 9.1 Serum , Qual NEGATIVE Urine Color Urine Clarity Urine pH Ur Specific [place] Urine Protein Urine Glucose (UA) Urine Ketones Urine Occult Blood Urine Nitrite Urine Bilirubin Urine Urobilinogen Ur Leukocyte Esterase Urine RBC Urine WBC Ur Squamous Epith Cells Urine Bacteria Urine Mucus 05/25/22 17:26 WBC RBC Hgb Hct MCV MCH MCHC RDW Std Deviation RDW Coeff of Sera Plt Count MPV Immature Gran % (Auto) Neut % (Auto) Lymph % (Auto) George % (Auto) Eos % (Auto) Baso % (Auto) Absolute Neuts (auto) Absolute Lymphs (auto) Nucleated RBC % Sodium Potassium Chloride Carbon Dioxide Anion Gap BUN Creatinine Estim Creat Clear Calc Est GFR (MDRD) Af Amer Est GFR (MDRD) Non-Af BUN/Creatinine Ratio Glucose Calcium Serum , Qual Urine Color Straw Urine Clarity Sl. Cloudy Urine pH 7.0 Ur Specific [place] 1.010 Urine Protein 15 H Urine Glucose (UA) Normal Urine Ketones Negative Urine Occult Blood 250 H Urine Nitrite Negative Urine Bilirubin Negative Urine Urobilinogen Normal Ur Leukocyte Esterase 25 H Urine RBC 50-100 SEEN Urine WBC 0-5 SEEN Ur Squamous Epith Cells 5-10 SEEN Urine Bacteria 0 SEEN Urine Mucus 0 SEEN Radiography Diagnostic Testing: Clinical Impression(s) from Imaging Studies Abdomen/Pelvis CT 05/25/22 16:51 IMPRESSION: 1. Right distal ureteral stone with moderate proximal hydroureteronephrosis. 2. Multiple additional nonobstructing renal calculi. Electronically Signed: Kimberly Boyle MD at 17:58 EST Reading Location ID and State: [id number] / Tel , Service support , Discharge Plan Triage Chief Complaint: Flank Pain ED Provider: Manny Plascencia Dx/Rx/DC Orders Clinical Impression: Ureterolithiasis, Bilateral kidney stones, Right flank pain Instructions: Treating Kidney Stones ..., Preventing Kidney Stones, ED Kidney Stone w/ Colic Prescriptions: New tamsulosin [Flomax] 0.4 mg capsule 0.4 mg PO DAILY Qty: 10 0RF ketorolac 10 mg tablet 10 mg PO TID PRN (Reason: pain) Qty: 15 0RF oxycodone-acetaminophen [Percocet] 5-325 mg tablet 1 tab PO Q6H PRN (Reason: pain) 3 Days Qty: 12 0RF No Action ProAir HFA 90 mcg/actuation HFA aerosol inhaler 2 puff INHALATION Q4H PRN (Reason: Sob &/Or Wheezing) Qty: 8.5 1RF Breo Ellipta 200-25 mcg/dose blister with device 1 inh INHALATION Q24H Qty: 60 11RF cetirizine 10 MG tablet 10 mg PO DAILY amlodipine 5 MG tablet 5 mg PO DAILY fluticasone propionate 1 SPRAY spray,suspension 1 spray NASAL DAILY tamsulosin 0.4 MG capsule 0.4 mg PO DAILY Qty: 7 0RF ondansetron HCl 8 MG tablet 8 mg PO Q8H PRN PRN (Reason: Nausea) Qty: 12 0RF Primary Care Provider: Taisha Sidhu Referrals: Ivy Messer MD [Med Staff - Active Staff] - 3-5 Days Taisha Sidhu MD [Primary Care Provider] - Disposition Disposition: Home, Self Care
[2022-05-25] MEDS: 0.9% Normal Saline 1,000 ML 250 ML IV (17:14)
[2022-05-25] MEDS: Ondansetron 4 MG/2 ML Vial IV (17:15)
[2022-05-25 17:17] LABS: Absolute Neutrophil Count 6.6 X10^3/uL (2.0-7.7); Basophil# 0.08 X10^3/uL; Basophil% 0.8 % (0-1); Eosinophil# 0.51 X10^3/uL; Hemoglobin 15.4 g/dL (12.0-15.0); Lymphocyte % 22.6 % (19-41); Mean Corp Hgb Conc 33.5 g/dL (32-36); Mean Corpuscular Hgb 29.2 pg (27.0-32.0); Mean Corpuscular Volume 87.3 fL (81-99); Mean Platelet Vol. 9.2 fl (6.2-12.0); Monocyte# 0.62 X10^3/uL; Monocyte% 6.1 % (0-10); NRBC Flagged by Analyzer 0 % (0-5); Neutrophil # 6.64 X10^3/uL (2.7-7.7); Neutrophil % 65.2 % (47-70); Platelet Count 340 K/mm3 (150-450); RBC Distribution Width CV 12.6 % (11.6-14.6); RBC Distribution Width SD 39.8 fl (35.1-43.9); Red Blood Count 5.27 M/mm3 (4.2-5.4); White Blood Count 10.2 K/mm3 (4.4-11.0)
[2022-05-25] MEDS: Morphine 4 MG/ML Syringe IV (17:18)
[2022-05-25 17:25] LABS: Internal QC Validated? YES +Cl - CLEAR BKGD; Pregnancy, Serum, hCG Quali. NEGATIVE Negative
[2022-05-25 17:29] LABS: Bacteria 0 SEEN /hpf (None Seen); Mucous, Urine 0 SEEN /hpf (<or=2+)
[2022-05-25 17:29] LABS: Anion Gap 8 (5-15); BUN 15 mg/dL (7-18); BUN/Creat Ratio 14.7 RATIO (10-20); Calcium,Total 9.1 mg/dL (8.5-10.1); Chloride 108 mmol/L (98-107); Creatinine, Serum 1.02 mg/dL (0.55-1.02); EST Glomerular Filtration Rate 63 mL/min (>60); Est Glom Filt Rate - Afr Amer 76 mL/min (>60); Estimated Creatinine Clearance 54.22 ml/min; Glucose 109 mg/dL (74-106); Potassium 3.4 mmol/L (3.5-5.1); Sodium Level 141 mmol/L (136-145)
[2022-05-25 17:32] LABS: Color, Urine Straw (Yellow); Glucose, Dipstick Normal (Normal); Ketone-Dipstick Negative (Negative); Leukocyte Esterase-Dipstick 25 /ul (Negative); Nitrite-Dipstick Negative (Negative); Occult Blood-Urine 250 /ul (Negative); Protein-Dipstick 15 mg/dl (Negative); Urine Bilirubin Dipstick Negative (Negative); Urine Clarity Sl. Cloudy (Clear); Urine Urobilinogen Normal (Normal)
[2022-05-25 17:44] LABS: Red Blood Cells-Urine 50-100 SEEN /hpf (0-5); Squamous Epithelial Cells - UA 5-10 SEEN /hpf (5-10); White Blood Cells 0-5 SEEN /hpf (0-5)
[2022-05-25 17:57] VITALS: PULSE 85; O2SAT 99
[2022-05-25] MEDS: Ketorolac 30 MG/ML Syringe IV (17:58)
[2022-05-25 18:04] VITALS: PULSE 74; RESP 18; O2SAT 99
[2022-05-25 18:11] VITALS: PULSE 94; RESP 18; O2SAT 95
== END 2022-05-25 18:28 | disposition home or self-care (01) ==
PROVIDERS: Emergency Provider Emergency Medicine; PCP Internal Medicine; Visit Provider Emergency Medicine
DX: N13.2 Hydronephrosis with renal and ureteral calculous obstruction (principal); I10 Essential (primary) hypertension; J45.909 Unspecified asthma, uncomplicated; Z79.899 Other long term (current) drug therapy; Z87.442 Personal history of urinary calculi
CPT/HCPCS: 74176; 80048; 81001; 84703; 85025; 96361; 96374; 96375; 99282; J7030; A4216; J2405